=== PATIENT | female | born 1950 | race Caucasian/White ===

== ENCOUNTER 2017-08-12 20:52 | Emergency (ER) | payer MEDICARE ==
[~2017-08-12 20:52] MED LIST: Gadobenate Dimeglumine 529 MG/1 ML (20ML VIAL) ONE
[2017-08-12] MEDS ORDERED: Metoclopramide HCl 10 MG/2 ML VIAL ONE (21:21)
[2017-08-12 21:25] LABS: #Basophils 0.1 thou/uL (0.0-0.2); #Eosinphils 0.2 thou/uL (0.0-0.7); #Lymphocytes 2.9 thou/uL (1.20-3.40); #Monocytes 0.5 thou/uL (0.11-0.59); #Neutrophils 3.2 thou/uL (1.40-6.50); %Basophils 1.3 % (0.0-1.0); %Eosinophils 2.5 % (0.0-10.0); %Lymphocytes 42.8 % (21.0-51.0); %Monocytes 6.7 % (0.0-10.0); %Neutrophils 46.6 % (42.0-75.0); Mean Corpuscular HGB CONC 34.9 g/dL (32.0-36.0); Mean Corpuscular Hemoglobin 28.7 pg (27.0-31.0); Mean Corpuscular Volume 82.4 fl (81.0-99.0); Mean Platelet Volume 6.2 fL (7.4-10.4); Platelet Count 255 thou/uL (130-400); RBC Distribution Width 11.2 % (11.5-14.5); Red Blood Cell (RBC) Count 4.89 mill/uL (4.20-5.40); White Blood Cell (WBC) Count 6.8 thou/uL (4.8-10.8)
[2017-08-12] MEDS ORDERED: diphenhydrAMINE 50 MG/ML VIAL ONE (21:32)
[2017-08-12] MEDS ORDERED: Lorazepam 2 MG/ML VIAL ONE (21:35)
[2017-08-12 21:36] LABS: ALT (SGPT) 62 U/L (8-55); AST (SGOT) 52 U/L (5-34); Albumin 4.1 g/dL (3.4-4.8); Alkaline Phosphatase 116 U/L (40-150); Anion Gap 16 mmol/L (10-20); BUN (Urea Nitrogen) 19 mg/dL (9.8-20.1); Bilirubin, Total 0.4 mg/dL (0.2-1.2); Calc. Creatinine Clearance 0 mL/min (70-130); Calcium 9.6 mg/dL (7.8-10.44); Carbon Dioxide 23 mmol/L (23-31); Chloride 104 mmol/L (98-107); Estimated GFR-MDRD 58; Globulin 3.8 g/dL (2.4-3.5); Glucose 229 mg/dL (80-115); Lipase 50 U/L (8-78); Potassium 3.6 mmol/L (3.5-5.1); Protein, Total 7.9 g/dL (6.0-8.3); Sodium 139 mmol/L (136-145)
[2017-08-12 22:23] LABS: Bilirubin Negative (Negative); Blood, Urine Negative (Negative); Clarity Clear (Clear); Glucose, Urine (Dipstick) 500 mg/dL (Negative); Leukocyte Trace (Negative); Nitrite Negative (Negative); Protein, Urine (Dipstick) Negative (Neg-Trace); pH, Urine 5.5 (5.0-9.0)
[2017-08-12 22:29] LABS: Bacteria/HPF None Seen HPF (None Seen); RBC/HPF 0-3 HPF (0-3); Squamous Epithelial 0-3 HPF (0-3); WBC/HPF 0-3 HPF (0-3)
[2017-08-12 22:30] LABS: Hyaline Casts/LPF 0-3 HYALINE CAST LPF (0-3 Hyaline)
--- NOTE | 2017-08-12 23:52 | CT ---
CT ABDOMEN AND PELVIS WITH CONTRAST: Comparison: None. History: Left upper quadrant abdominal pain and left flank pain for three days. Partial hysterectomy and appendectomy in 1978. Technique: Multiple contiguous axial images were obtained in a CT of the abdomen and pelvis with cont rast. PO contrast was administered. Coronal reformats were performed. FINDINGS: There is a large 8.8 cm cystic structure in the lower posterior pelvis. This appears to abut both ova alena which are along the pelvis side song and this may represent an ovarian cyst/follicle. The uteru s is not seen and has been removed. The liver, gallbladder, kidneys, adrenal glands, spleen, and pancreas are unremarkable. No free air, free fluid, or stranding changes are seen in the abdomen or pelvis. There are a few scattered diverticula in the colon. The small bowel is unremarkable. No abdominal or pelvic lymphadenopathy are seen. There is a moderate hiatal hernia. The abdominal wall soft tissues and visualized inferior thorax are unremarkable. There are two sclerotic lesions in the left pelvic bones. The largest is seen adjacent to the left acetabulum measuring 2.6 cm in greatest dimension. These are well circumscribed but nons pecific. IMPRESSION: 1. Large cystic structure in the pelvis likely represents an ovarian cyst/follicle. 2. Diverticulosis. 3. Hiatal hernia. 4. Nonspecific sclerotic foci in the left pelvic bones are likely benign as they are well circumscrib ed. POS: [facility]
[2017-08-13 00:47] LABS: Lactic Acid 1.4 mmol/L (0.5-2.2)
[2017-08-16 09:54] LABS: Base Excess-Venous -3.6 mmol/L (0 (+/- 2.5)); Bicarbonate (HCO3v) 25.8 mmol/L (1.0-85.0); CO2 Tension (PvCO2) 64.2 mmHg (41.0-51.0); Calcium, Ionized 1.17 mmol/L (1.12-1.32); Hemoglobin - Calc 15.2 g/dL (12.0-18.0); Potassium 10.6 mmol/L (3.4-4.7); T. Carbon Dioxide 27.8 mmol/L (1.0-85.0); pH (Venous) 7.212 (7.35-7.45); vO2 Saturation-calc 88.7 % (94-98)
--- NOTE | 2017-08-20 15:55 | EKG ---
Test Reason : Blood Pressure : / mmHG Vent. Rate : 100 BPM Atrial Rate : 100 BPM P-R Int : 148 ms QRS Dur : 084 ms QT Int : 348 ms P-R-T Axes : 051 065 057 degrees QTc Int : 448 ms Normal sinus rhythm Normal ECG Confirmed by HAY IRVIN, BAUTISTA ([id number]), art editor VERN EARLY ([id number]) on 08/20/2017 3:55:01 PM Referred By: Confirmed By:BAUTISTA GUIDO MD
== END 2017-08-13 01:06 | disposition home or self-care (01) ==
LOC: SCSER 20:52
DX: N94.89 Other specified conditions associated with female genital organs and menstrual cycle (principal); I10 Essential (primary) hypertension; Z79.899 Other long term (current) drug therapy
CPT/HCPCS: 74177; 80053; 81003; 81015; 82330; 82435; 82803; 83605; 83690; 84132; 84295; 85014; 85025; 93005; 96361; 96374; 96375; A9579; J1200; J2060; J2765

== ENCOUNTER 2018-03-28 09:41 | Outpatient (CLI) | payer MEDICARE ==
--- NOTE | 2018-03-28 11:52 | ULT ---
BILATERAL RENAL ULTRASOUND: Date: 03/28/18 HISTORY: Angiomyolipoma of right kidney. FINDINGS: Comparison made with ultrasound of 03/01/[address] abdomen/pelvis of 08/12/17. The right kidney measures 11.1 cm in length and the left kidney measures 10.5 cm in length. No focal mass or hydronephrosis seen on either side. Cortical echogenicity and thickness is normal. There is a 3.0 x 5.0 mm echogenic focus without shadowing. The urinary bladder is unremarkable. IMPRESSION: Questionable nonobstructing left renal calculus. No evidence of mass in either kidney. POS: [facility]
== END 2018-03-28 09:42 | disposition home or self-care (01) ==
LOC: BICULT 09:41
PROVIDERS: ATTEND Internal Medicine
DX: D30.01 Benign neoplasm of right kidney (principal)
CPT/HCPCS: 76770

== ENCOUNTER 2018-04-29 14:22 | Emergency (ER) | payer MEDICARE ==
[2018-04-29 14:51] LABS: #Basophils 0.1 thou/uL (0.0-0.2); #Eosinphils 0.2 thou/uL (0.0-0.7); #Lymphocytes 3.1 thou/uL (1.20-3.40); #Monocytes 0.5 thou/uL (0.11-0.59); %Basophils 0.8 % (0.0-1.0); %Eosinophils 2.4 % (0.0-10.0); %Lymphocytes 39.6 % (21.0-51.0); %Monocytes 6.5 % (0.0-10.0); %Neutrophils 50.8 % (42.0-75.0); Hemoglobin 14.7 g/dL (12.0-16.0); Mean Corpuscular HGB CONC 34.9 g/dL (32.0-36.0); Mean Corpuscular Hemoglobin 29.9 pg (27.0-31.0); Mean Corpuscular Volume 85.7 fL (78.0-98.0); Mean Platelet Volume 6.1 fL (7.4-10.4); Platelet Count 344 thou/uL (130-400); RBC Distribution Width 11.4 % (11.5-14.5); Red Blood Cell (RBC) Count 4.92 mill/uL (4.20-5.40); White Blood Cell (WBC) Count 7.8 thou/uL (4.8-10.8)
[2018-04-29 15:11] LABS: Bilirubin Negative (Negative); Blood, Urine Negative (Negative); Clarity CLOUDY (Clear); Glucose, Urine (Dipstick) Negative (Negative); Leukocyte Small (Negative); Nitrite Negative (Negative); Protein, Urine (Dipstick) Negative (Neg-Trace)
[2018-04-29 15:16] LABS: Bacteria/HPF 1+ HPF (None Seen); Hyaline Casts/LPF 7-10 HYALINE CAST LPF (0-3 Hyaline); Pathc Cast-AUWi Flag 1.88 (0-2.49); RBC/HPF 0-3 HPF (0-3)
[2018-04-29 15:17] LABS: ALT (SGPT) 53 U/L (8-55); AST (SGOT) 50 U/L (5-34); Albumin 4.2 g/dL (3.4-4.8); Alkaline Phosphatase 111 U/L (40-150); Anion Gap 13 mmol/L (10-20); BUN (Urea Nitrogen) 12 mg/dL (9.8-20.1); Bilirubin, Total 0.6 mg/dL (0.2-1.2); Calc. Creatinine Clearance 0 mL/min (70-130); Carbon Dioxide 25 mmol/L (23-31); Chloride 101 mmol/L (98-107); Estimated GFR-MDRD 67; Globulin 3.8 g/dL (2.4-3.5); Glucose 145 mg/dL (80-115); Sodium 135 mmol/L (136-145)
--- NOTE | 2018-04-29 15:54 | RAD ---
SINGLE VIEW CHEST: Date: 04/29/18 COMPARISON: None. HISTORY: Left lower quadrant abdominal pain and chest pain. FINDINGS: Single view of the chest shows a normal sized cardiomediastinal silhouette. There is no evidence of c onsolidation, mass, or pleural effusion. The bones are unremarkable. IMPRESSION: No evidence of acute cardiopulmonary disease. POS: [facility]
--- NOTE | 2018-04-30 15:39 | EKG ---
Test Reason : Blood Pressure : / mmHG Vent. Rate : 110 BPM Atrial Rate : 110 BPM P-R Int : 142 ms QRS Dur : 074 ms QT Int : 318 ms P-R-T Axes : 047 055 037 degrees QTc Int : 430 ms Sinus tachycardia Nonspecific ST abnormality Abnormal ECG Confirmed by CHANDRIKA LITTLE ([id number]), acquisitions editor VERN EARLY ([id number]) on 04/30/2018 3:38:57 PM Referred By: Confirmed By:CHANDRIKA LITTLE
== END 2018-04-29 16:46 | disposition home or self-care (01) ==
LOC: ERS 14:22
DX: R10.13 Epigastric pain (principal); E11.9 Type 2 diabetes mellitus without complications; I10 Essential (primary) hypertension; Z79.84 Long term (current) use of oral hypoglycemic drugs; Z79.899 Other long term (current) drug therapy
CPT/HCPCS: 36415; 71045; 80053; 81003; 81015; 82550; 84484; 85025; 93005

== ENCOUNTER 2018-04-30 09:20 | Outpatient (CLI) | payer MEDICARE ==
--- NOTE | 2018-04-30 12:13 | CT ---
CT ABDOMEN AND PELVIS WITH CONTRAST: HISTORY: Abdominal pain, R10,9. COMPARISON: CT from 08/12/2017. FINDINGS: The lung bases are clear. No pericardial effusion. Large sliding hiatal hernia, containing approxim ately 20% of the gastric volume. This is similar to the comparison examination, with some mildly pro minent right gastric lymph nodes. Normal proximal small bowel rotation. No acute osseous abnormality. Mild facet arthrosis of the lower lumbar spine. No hydronephrosis. No retroperitoneal adenopathy. No dilated loops of large or small bowel. The enhancing mass in hepatic segment 7 is unchanged from the 08/12/2017 examination and is likely a hemangioma or vascular shunt. IMPRESSION: 1. Moderate to large sliding hiatal hernia, containing 20% to 30% of the gastric volume within the t horax. No acute intraabdominal abnormality. 2. The previously described adnexal hypodensity no longer persists. POS: [facility]
== END 2018-04-30 09:21 | disposition home or self-care (01) ==
LOC: CT 09:20
PROVIDERS: ATTEND Internal Medicine
DX: R10.9 Unspecified abdominal pain (principal); K44.9 Diaphragmatic hernia without obstruction or gangrene
CPT/HCPCS: 74177

== ENCOUNTER 2018-06-06 06:09 | Outpatient (CLI) | payer MEDICARE ==
[2018-06-06 12:15] LABS: #Eosinphils 0.3 thou/uL (0.0-0.7); #Lymphocytes 2.4 thou/uL (1.20-3.40); #Monocytes 0.5 thou/uL (0.11-0.59); #Neutrophils 2.6 thou/uL (1.40-6.50); %Basophils 0.6 % (0.0-1.0); %Eosinophils 5.9 % (0.0-10.0); %Lymphocytes 40.6 % (21.0-51.0); %Monocytes 8.6 % (0.0-10.0); %Neutrophils 44.3 % (42.0-75.0); Hemoglobin 13.8 g/dL (12.0-16.0); Mean Corpuscular HGB CONC 33.5 g/dL (32.0-36.0); Mean Corpuscular Hemoglobin 28.4 pg (27.0-31.0); Mean Corpuscular Volume 84.8 fL (78.0-98.0); Mean Platelet Volume 6.4 fL (7.4-10.4); Platelet Count 206 thou/uL (130-400); RBC Distribution Width 11.5 % (11.5-14.5); Red Blood Cell (RBC) Count 4.84 mill/uL (4.20-5.40); White Blood Cell (WBC) Count 5.9 thou/uL (4.8-10.8)
[2018-06-06 12:37] LABS: Anion Gap 13 mmol/L (10-20); BUN (Urea Nitrogen) 10 mg/dL (9.8-20.1); Calc. Creatinine Clearance 0 mL/min (70-130); Calcium 9.6 mg/dL (7.8-10.44); Carbon Dioxide 26 mmol/L (23-31); Chloride 104 mmol/L (98-107); Estimated GFR-MDRD 67; Glucose 111 mg/dL (80-115); Potassium 3.7 mmol/L (3.5-5.1); Sodium 139 mmol/L (136-145)
== END 2018-06-06 06:10 | disposition home or self-care (01) ==
LOC: LABBT 06:09
PROVIDERS: ATTEND Specialist
DX: Z01.818 Encounter for other preprocedural examination (principal); K44.9 Diaphragmatic hernia without obstruction or gangrene; K21.9 Gastro-esophageal reflux disease without esophagitis
CPT/HCPCS: 80048; 85025; 93005; 93010

== ENCOUNTER 2018-06-11 05:39 | Inpatient (IN) | payer MEDICARE ==
--- NOTE | 2018-06-06 10:11 | HP ---
HISTORY OF PRESENT ILLNESS: Cristina Schreiber is a 67-year-old female, who has had 3 to 4 weeks of upper abdominal pain and scapular radiation postprandial. She is seen by Dr. Lombardi and sent to the emergency room. Instructions to have a CAT scan, which she did not have. She returned to the hospital to have an urgent CAT scan revealing a large hiatal hernia, 20% to 30% of her gastric volume and in the mediastinum. She had laboratories on 04/29/2018, CBC and comprehension metabolic profile, that are normal. Troponins that were negative. The patient has never seen a natural gas engineer, has never had screening colonoscopy. We have scheduled her for Gastroenterology consultation. She wants to put off any surgeries until the first year. Although she is having some discomfort, she is able to tolerate them at this time. Plan is to see Dr. Flores for an upper endoscopy, possible colonoscopy, and then follow up with me after that to schedule laparoscopic hiatal hernia repair, Cate fundoplication, and gastropexy with a PEG tube. She understands the risks and benefits of the procedures. Questions answered. ALLERGIES: REGLAN AND STATIN. PAST SURGICAL HISTORY: Total abdominal hysterectomy, bilateral salpingo-oophorectomy, carpal tunnel surgery, and ovarian cyst removed prior to hysterectomy. SOCIAL HISTORY: Tobacco, none. Alcohol, none. PAST MEDICAL HISTORY: Diabetes mellitus, hypertension, GERD, elevated triglycerides and cholesterol. MEDICATIONS: 1. Metformin 500 mg a day. 2. Lisinopril 20/25 mg a day. 3. Ezetimibe 10 mg daily. 4. Amlodipine 5 mg a day. 5. Baby aspirin 81 mg a day. 6. Fish oil daily. 7. Nexium 40 mg a day. 8. Sucralfate 1 g t.i.d. REVIEW OF SYSTEMS: Ten-point noncontributory. PHYSICAL EXAMINATION: VITAL SIGNS: Weight 163 pounds, blood pressure 136/83, pulse 84, and heart rate 99.3 degrees. HEAD, EARS, EYES, NOSE, AND THROAT: Unremarkable. LUNGS: Clear to auscultation. CARDIAC: Regular rate and rhythm without murmur or gallop. ABDOMEN: Soft, nontender, and obese. EXTREMITIES: Unremarkable. Job ID: [id number]
[2018-06-06 10:41] VITALS: BMI 26.5
[2018-06-11] MEDS ORDERED: Bupivacaine HCl 0.25%/Epi 0.0005/PF 10 ML VIAL FS ONE (06:48)
[2018-06-11] MEDS ORDERED: CEFAZOLIN 2 GM/50 ML BAG ONE (07:08)
[2018-06-11] MEDS ORDERED: Ketorolac Tromethamine 30 MG/ML VIAL ONE ×2 (07:09→12:44)
[2018-06-11] MEDS ORDERED: Fentanyl 100 MCG/2 ML VIAL ONE ×5 (07:24→11:36)
[2018-06-11] MEDS ORDERED: Dextrose 50% Abboject 50 ML SYRINGE SLOW IVP PRN (10:16)
[2018-06-11] MEDS ORDERED: hydrALAZINE 20 MG/ML VIAL SLOW IVP PRN (10:16)
[2018-06-11] MEDS ORDERED: HumaLOG 300 UNITS/3 ML VIAL SC PRN (10:16)
[2018-06-11] MEDS ORDERED: Ondansetron PF 4 MG/2 ML Vial IVP PRN (10:16)
[2018-06-11] MEDS ORDERED: Ondansetron ODT 4 MG TAB PO PRN (10:16)
[2018-06-11] MEDS ORDERED: Dextrose 5% in Water 1,000 ML IV PRN (10:16)
[2018-06-11] MEDS ORDERED: HYDROmorphone 2 MG/ML VIAL SLOW IVP PRN (10:22)
[2018-06-11] MEDS ORDERED: Promethazine HCl 25 MG/ML VIAL SLOW IVP PRN (10:22)
[2018-06-11] MEDS ORDERED: Promethazine HCl 25 MG/ML VIAL IM PRN (10:22)
[2018-06-11] MEDS ORDERED: Ondansetron HCl/PF 4 MG/2 ML Vial IVP PRN (10:22)
[2018-06-11] MEDS ORDERED: Morphine 4 MG/ML VIAL SLOW IVP PRN (10:24)
[2018-06-11] MEDS: Ketorolac Tromethamine 30 MG/ML VIAL IVP SCH ×2 (12:44→18:29)
[2018-06-11] MEDS: Lactated Ringer's 1,000 ML IV SCH ×2 (12:44→21:44)
[2018-06-11] MEDS ORDERED: Glycopyrrolate 0.2 MG/ML 5 ML SYRINGE ONE (13:01)
[2018-06-11] MEDS ORDERED: PROPOFOL 200 MG/20 ML VIAL ONE (13:01)
[2018-06-11] MEDS ORDERED: PHENYLEPHRINE-NS 100 MCG/ML 10 ML SYRINGE ONE (13:01)
[2018-06-11] MEDS ORDERED: Ondansetron PF 4 MG/2 ML Vial ONE (13:01)
[2018-06-11] MEDS ORDERED: Rocuronium Bromide 10 MG/ML (10ML VIAL) ONE (13:01)
[2018-06-11] MEDS ORDERED: Lidocaine 1% PF 5 ML VIAL ONE (13:01)
[2018-06-11] MEDS ORDERED: Promethazine HCl 25 MG/ML VIAL ONE (13:41)
--- NOTE | 2018-06-11 14:21 | OP ---
DATE OF PROCEDURE: 06/11/2018 PREOPERATIVE DIAGNOSES: Large hiatal hernia, gastroesophageal reflux disease, status post esophagogastroduodenoscopy and colonoscopy recently. ANESTHESIA: General, local 0.25% Marcaine with epinephrine 60 mL. PROCEDURES PERFORMED: Laparoscopic Cate fundoplication over 50-American bougie, hiatal hernia repair, and gastropexy. FINDINGS: Hiatal hernia with 1/3 gastric contents in the mediastinum, and hiatal hernia defect. DESCRIPTION OF PROCEDURE: The patient was taken to the operating room, where in the supine position, abdomen was prepared with ChloraPrep and draped in routine fashion under general anesthesia. A supraumbilical incision was made. Pneumoperitoneum to 15 mmHg obtained with a Veress needle, replaced with a 5 port, and laparoscope inserted. Right subxiphoid and left subxiphoid incision were made and a 5 mm port and 11 mm port placed respectively. Left lateral subcostal incision was made and a 5 mm port placed. Right subcostal incision was made and a 5-mm port placed. Under laparoscopic visualization, liver appeared to be normal. Gallbladder appeared to be normal. Liver retractor was placed to the right lateral subcostal incision and the left lobe of the liver retracted anterior and cephalad, held in place with Tariq's arm. Hiatal hernia dissected free. Gastrohepatic ligament was taken down in avascular plane with a LigaSure to the right crura. Gastrosplenic ligament taken down from the upper third of the fundus of the stomach using the LigaSure, dissected up to the left crura. Hiatal hernia dissected free, taken down, identifying the left and right crura, and dissected free circumferentially, peritoneal attachments and hiatal hernia site. Dissection was carried up into the mediastinum reducing the stomach into the abdominal cavity and the posterior window cleared with the LigaSure and blunt dissection, identifying the left and right crura posteriorly and placing a [place] quarter-inch drain around the lower esophagus and securing it through another port site in the left lower quadrant, through a 5 mm port. This was held in place. At this point, the hiatal hernia was repaired posteriorly with interrupted sutures of 0 Ethibond using the Endo Knot Pusher. Once this was closed over with the 50-American bougie in the esophagus, which had been placed initially by placing bougie over 40-American caliber and progressing up to a 50-American bougie and after the posterior hiatus had been closed, the Cate fundoplication completed bypassing the posterior wall of the stomach near the apex of the fundus posteriorly grasping it, holding it in place in the upper fundus anterior to the gastrosplenic ligament takedown, passed, and this held in place with 0 Ethibond suture passed, securing the fundic wrap, apex, and incorporating the bite of the lower esophagus in this approximation. About 2 cm caudally from this, the fundus was approximated with Ethibond suture knot pusher and about 2 cm caudal to this, a third knot was placed securing the fundic wrap to the upper stomach. Once this was completed, the fundus was secured on the left to the left anterior crura and on the right to the right anterior crura with Ethibond sutures using the knot pusher. The bougie was then removed and the hiatal hernia repair was adequately tight to allow passage of an examining instrument. Gastropexy was undertaken with two stitches of Ethibond suture, pexing the fundus of the stomach just anterior to the gastrosplenic ligament taken down to an area of the anterior abdominal wall, left upper quadrant, secured it and pexied. Once this was secured, endoscopy was performed, passing the scope easily through the esophagus through the fundic wrap into the stomach. Retroflexion of scope revealed a good Cate fundoplication appearance and scope passed easily. Torsion of the stomach was not present. Stomach was deflated. Esophagus noted to be normal. I then returned to the abdominal cavity, where the liver retractors removed and the liver was of good health without any fracture or tear. Stomach was inspected, noted to be properly oriented. The fundic wrap was intact. Pneumoperitoneum reduced. All instruments were removed and all skin incisions were approximated with interrupted subdermal 4-0 Monocryl and [place] glue applied. The patient tolerated the procedure well. Job ID: [id number]
[2018-06-11] MEDS ORDERED: Enoxaparin Sodium 40 MG/0.4 ML SYRINGE SC SCH (21:00)
[2018-06-12] MEDS: Ketorolac Tromethamine 30 MG/ML VIAL IVP SCH ×3 (00:19→11:26)
[2018-06-12 06:21] LABS: #Basophils 0.1 thou/uL (0.0-0.2); #Eosinphils 0.1 thou/uL (0.0-0.7); #Lymphocytes 2.2 thou/uL (1.20-3.40); #Monocytes 0.5 thou/uL (0.11-0.59); #Neutrophils 4.1 thou/uL (1.40-6.50); %Basophils 0.9 % (0.0-1.0); %Eosinophils 1.5 % (0.0-10.0); %Lymphocytes 31.4 % (21.0-51.0); %Monocytes 7.6 % (0.0-10.0); %Neutrophils 58.7 % (42.0-75.0); Hemoglobin 11.8 g/dL (12.0-16.0); Mean Corpuscular HGB CONC 34.3 g/dL (32.0-36.0); Mean Corpuscular Volume 87.4 fL (78.0-98.0); Mean Platelet Volume 6.7 fL (7.4-10.4); Platelet Count 178 thou/uL (130-400); RBC Distribution Width 11.6 % (11.5-14.5); Red Blood Cell (RBC) Count 3.92 mill/uL (4.20-5.40); White Blood Cell (WBC) Count 6.9 thou/uL (4.8-10.8)
[2018-06-12] MEDS: Lactated Ringer's 1,000 ML IV SCH (06:44)
[2018-06-12 07:06] LABS: Anion Gap 11 mmol/L (10-20); BUN (Urea Nitrogen) 11 mg/dL (9.8-20.1); Calc. Creatinine Clearance 77 mL/min (70-130); Calcium 8.4 mg/dL (7.8-10.44); Carbon Dioxide 23 mmol/L (23-31); Chloride 104 mmol/L (98-107); Estimated GFR-MDRD 76; Glucose 146 mg/dL (80-115); Potassium 3.4 mmol/L (3.5-5.1); Sodium 135 mmol/L (136-145)
[2018-06-12] MEDS ORDERED: metFORMIN 500 MG TAB PO SCH (08:00)
[2018-06-12] MEDS ORDERED: traMADol HCl 50 MG TAB PO PRN ×2 (08:00)
[2018-06-12 08:25] VITALS: TEMP 98.5
[2018-06-12] MEDS ORDERED: Pantoprazole 40 MG VIAL IVP SCH (09:00)
[2018-06-12] MEDS ORDERED: Ezetimibe 10 MG TAB PO SCH (09:00)
[2018-06-12] MEDS ORDERED: Lisinopril/Hydrochlorothiazide 20/25 mg Tablet PO SCH (09:00)
[2018-06-12] MEDS ORDERED: Amlodipine 5 MG TAB PO SCH (09:00)
[2018-06-12] MEDS ORDERED: Aspirin 81 mg Enteric Coated Tablet PO SCH (09:00)
[2018-06-12] MEDS ORDERED: Fish Oil 1,000 MG CAP PO SCH (09:00)
[2018-06-12 11:24] VITALS: BP 131/83
[2018-06-12] MEDS ORDERED: Acetaminophen 500 MG TAB PO PRN (14:15)
--- NOTE | 2018-06-12 14:34 | PRG ---
DATE OF SERVICE: 06/12/2018 SUBJECTIVE: Ms. Schreiber is doing well after laparoscopic Cate fundoplication and gastropexy. She is tolerating her liquids. OBJECTIVE: VITAL SIGNS: Temperature 98.5 degrees, pulse 96, and blood pressure 131/83. LUNGS: Clear to auscultation. Cardiac: Regular rate and rhythm without murmur or gallop. ABDOMEN: Soft, nontender. Surgical wounds look good. LABORATORY DATA: This morning, white count 6, hemoglobin 11.8. Basic metabolic profile normal. ASSESSMENT: Status post Cate fundoplication, hiatal hernia repair, and gastropexy. Continue full liquids. Avoid red meat salads and breads for 1 to 2 weeks. Advance diet slowly to a soft diet. Avoid emesis. PLAN: Discharge home with Ultram, Advil, and Tylenol p.r.n. pain. Diet and activity as tolerated. Follow up with me in the office in 2 to 3 weeks. Job ID: [id number]
--- NOTE | 2018-06-12 16:34 | DIS ---
DATE OF ADMISSION: 06/11/2018 DATE OF DISCHARGE: 06/12/2018 DISCHARGE DIAGNOSES: Hiatal hernia; gastroesophageal reflux disease; hypertension; diabetes, noninsulin dependent. HOME MEDICATIONS AT DISCHARGE: 1. Tylenol. 2. Advil [id number] p.r.n. pain. 3. Ultram p.r.n. pain, refractory to above. 4. Zofran as needed, #10 one refill. Follow up in my office in 2 to 3 weeks. Diet advancement, full liquids to pureed, soft diet. Avoid red meat, salads, and breads for about 2 weeks. Introduce these slowly in small volumes and chew it well. Resume home medications; aspirin, amlodipine, metformin, Zetia, and Zofran. HISTORY: A 67-year-old female presenting with large hiatal hernia, evaluated preoperatively by Gastroenterology with an EGD, colonoscopy. EGD revealing hiatal hernia, 20% to 30% of her gastric volume in mediastinum. No ulcerations. No Ribeiro's. The patient had 4 weeks of upper abdominal pain prior, saw Dr. Lombardi, sent to the emergency room. CAT scan revealed a hiatal hernia. The patient underwent the laparoscopic Cate fundoplication, hiatal hernia repair, over 50-Beninese Bougie, and gastropexy. She did well postoperatively. She was instructed to advance her diet slowly, full liquids on discharge, pureed/soft foods initially. Avoid red meat, salads, and bread for about 2 weeks, introduce these slowly in small volumes and chew it well. Diet and activity as tolerated. Resume diabetic diet. Resume home medications. Job ID: [id number]
== END 2018-06-12 15:05 | disposition home or self-care (01) | DRG 328 ==
LOC: SDC 05:39 → SURG A 10:16
PROVIDERS: ADMIT Specialist; ATTEND Specialist
PROC: 0BQT4ZZ Repair Diaphragm, Percutaneous Endoscopic Approach (ICD-10-PCS; principal; 2018-06-11)
PROC: 0DV44ZZ Restriction of Esophagogastric Junction, Percutaneous Endoscopic Approach (ICD-10-PCS; 2018-06-11)
DX: K44.9 Diaphragmatic hernia without obstruction or gangrene (principal); E11.9 Type 2 diabetes mellitus without complications; I10 Essential (primary) hypertension; K21.9 Gastro-esophageal reflux disease without esophagitis; Z88.8 Allergy status to other drugs, medicaments and biological substances; Z90.710 Acquired absence of both cervix and uterus; Z90.722 Acquired absence of ovaries, bilateral; Z98.890 Other specified postprocedural states; Z79.84 Long term (current) use of oral hypoglycemic drugs; Z79.899 Other long term (current) drug therapy; Z79.82 Long term (current) use of aspirin
CPT/HCPCS: 36415; 36416; 80048; 85025; J0131; J1650; J1885; J2001; J2270; J2405; J2550; J2704; J3010; Q0162

== ENCOUNTER 2018-07-25 09:45 | Outpatient (CLI) | payer MEDICARE ==
[2018-07-25 10:40] LABS: #Basophils 0.1 thou/uL (0.0-0.2); #Eosinphils 0.1 thou/uL (0.0-0.7); #Lymphocytes 2.9 thou/uL (1.20-3.40); #Monocytes 0.5 thou/uL (0.11-0.59); #Neutrophils 4.9 thou/uL (1.40-6.50); %Basophils 0.8 % (0.0-1.0); %Eosinophils 1.4 % (0.0-10.0); %Lymphocytes 34.4 % (21.0-51.0); %Monocytes 5.7 % (0.0-10.0); %Neutrophils 57.7 % (42.0-75.0); Hemoglobin 15.3 g/dL (12.0-16.0); Mean Corpuscular Hemoglobin 28.3 pg (27.0-31.0); Mean Corpuscular Volume 85.8 fL (78.0-98.0); Platelet Count 265 thou/uL (130-400); RBC Distribution Width 11.6 % (11.5-14.5); Red Blood Cell (RBC) Count 5.41 mill/uL (4.20-5.40); White Blood Cell (WBC) Count 8.5 thou/uL (4.8-10.8)
[2018-07-25 10:51] LABS: ALT (SGPT) 56 U/L (8-55); AST (SGOT) 64 U/L (5-34); Albumin 4.6 g/dL (3.4-4.8); Alkaline Phosphatase 106 U/L (40-150); Anion Gap 16 mmol/L (10-20); BUN (Urea Nitrogen) 14 mg/dL (9.8-20.1); Bilirubin, Total 0.9 mg/dL (0.2-1.2); Calc. Creatinine Clearance 0 mL/min (70-130); Calcium 10.6 mg/dL (7.8-10.44); Carbon Dioxide 28 mmol/L (23-31); Chloride 99 mmol/L (98-107); Estimated GFR-MDRD 72; Glucose 130 mg/dL (80-115); Lipase 37 U/L (8-78); Potassium 3.2 mmol/L (3.5-5.1); Protein, Total 8.6 g/dL (6.0-8.3); Sodium 140 mmol/L (136-145)
--- NOTE | 2018-07-25 13:25 | CT ---
ABDOMEN AND PELVIC CT SCAN WITH IV COTNRAST: HISTORY: R10.9, abdominal pain, epigastric pain, and diarrhea. COMPARISON: 04/30/2018. FINDINGS: The lung bases appear clear. There has been interval surgical repair of the previously noted hiatal hernia with some stomach wrapped around the distal esophagus. The visualized gallbladder, liver, adr enal glands, and spleen appear stable. There is a small stable enhancing focus in the right lobe of the liver. Borderline stable evens hepatis lymph nodes. No renal calculus or acute obstruction. No evidence for large or small bowel obstruction. No abscess or abnormal fluid collection. IMPRESSION: Status post hiatal hernia repair. A small stable enhancing focus in the right lobe of the liver. No acute process or significant change. POS: [facility]
[2018-07-25 14:26] LABS: Gamma GT (GGT) 97 U/L (9-36)
== END 2018-07-25 09:46 | disposition home or self-care (01) ==
LOC: SCSCT 09:45
PROVIDERS: ATTEND Internal Medicine
DX: R10.9 Unspecified abdominal pain (principal); K21.9 Gastro-esophageal reflux disease without esophagitis; E78.2 Mixed hyperlipidemia; Z98.890 Other specified postprocedural states
CPT/HCPCS: 36415; 74177; 80053; 82977; 83690; 85025

== ENCOUNTER 2019-11-09 11:12 | Outpatient (CLI) | payer MEDICARE ==
[2019-11-09] MEDS ORDERED: Iopamidol 370 76% 100 ML VIAL ONE (13:51)
--- NOTE | 2019-11-09 15:45 | CT ---
CT ABDOMEN AND PELVIS WITH IV CONTRAST: DATE: 11/09/2019. PROVIDED CLINICAL HISTORY: Abdominal pain. FINDINGS: Comparison 07/25/2018. The visualized lung bases are free of significant opacity. Postoperative changes of Matthew fundoplication are noted. The gastric wrap and portions of the proxi mal gastric body protrude through the diaphragmatic hiatus. The liver, spleen, pancreas, kidneys, and adrenal glands demonstrate an unremarkable CT appearance. There is no bowel dilatation, inflammatory fat stranding, free fluid, or lymph node enlargement appar ent. Occasional vascular calcifications are seen. The regional major vascular structures appear oth erwise unremarkable. The osseous structures demonstrate no concerning lytic or blastic lesions. IMPRESSION: Postoperative changes of Matthew fundoplication, with the wrap and proximal gastric body protruding th rough the diaphragmatic hiatus. POS: [facility]
== END 2019-11-09 11:13 | disposition home or self-care (01) ==
LOC: BICCT 11:12
PROVIDERS: ATTEND Internal Medicine
DX: R10.9 Unspecified abdominal pain (principal); Z98.890 Other specified postprocedural states
CPT/HCPCS: 74177; Q9967

== ENCOUNTER 2019-12-03 08:40 | Outpatient (CLI) | payer MEDICARE ==
--- NOTE | 2019-12-03 09:25 | ULT ---
RIGHT UPPER QUADRANT ULTRASOUND: DATE: 12/03/2019. PROVIDED CLINICAL HISTORY: Epigastric pain. FINDINGS: The visualized IVC and pancreas appear normal. The liver demonstrates a coarsened and echogenic appe arance compatible with fatty infiltration. There is no evidence for mass or intrahepatic biliary nimisha mary beth dilatation. The common duct is not dilated. Gallbladder demonstrates no stones, wall thickening , or pericholecystic fluid. The right kidney demonstrates no hydronephrosis, or mass. IMPRESSION: Fatty infiltration of the liver. No evidence for an acute process. POS: [facility]
== END 2019-12-03 08:41 | disposition home or self-care (01) ==
LOC: SCSULT 08:40
PROVIDERS: ATTEND Specialist
DX: R10.13 Epigastric pain (principal); K76.0 Fatty (change of) liver, not elsewhere classified
CPT/HCPCS: 76705

== ENCOUNTER → 2019-12-24 | Outpatient (CLI) | payer MEDICARE, OTHER ==
[2019-12-24 18:20] LABS: SARS-CoV-2 MS2 Positive; SARS-CoV-2 N Gene Negative; SARS-CoV-2 S Gene Negative; SARS-CoV-2 by NAA Not Detected (NotDetected); SARS-CoV-2 orf1ab Negative
== END ==
LOC: LABBT 08:00
PROVIDERS: ATTEND Specialist
DX: Z20.828 Contact with and (suspected) exposure to other viral communicable diseases (principal)
CPT/HCPCS: 87635; U0003

== ENCOUNTER 2021-10-29 14:53 | Emergency (ER) | payer MEDICARE ==
[2021-10-29] MEDS ORDERED: Lidocaine 1% (PF) 30 ML VIAL ONE (15:33)
== END 2021-10-29 16:11 | disposition home or self-care (01) ==
LOC: ERS 14:53
DX: S61.411A Laceration without foreign body of right hand, initial encounter (principal); I10 Essential (primary) hypertension; R73.03 Prediabetes; Z79.899 Other long term (current) drug therapy; Z79.84 Long term (current) use of oral hypoglycemic drugs; W25.XXXA Contact with sharp glass, initial encounter; Y92.009 Unspecified place in unspecified non-institutional (private) residence as the place of occurrence of the external cause
CPT/HCPCS: 12001; J2001

== ENCOUNTER 2021-11-08 08:05 | Emergency (ER) | payer MEDICARE | END 2021-11-08 10:23 | disposition home or self-care (01) | LOC: ERS 08:05 | DX: S61.411D Laceration without foreign body of right hand, subsequent encounter (principal); L03.011 Cellulitis of right finger; I10 Essential (primary) hypertension; W25.XXXD Contact with sharp glass, subsequent encounter; Z87.19 Personal history of other diseases of the digestive system; Z79.84 Long term (current) use of oral hypoglycemic drugs; Z79.899 Other long term (current) drug therapy | CPT/HCPCS: 99283 ==

== ENCOUNTER 2023-10-24 08:38 | Outpatient (CLI) | payer MEDICARE | END 2023-10-24 08:39 | disposition home or self-care (01) | LOC: BICRAD 08:38 | PROVIDERS: ATTEND Internal Medicine | DX: M25.512 Pain in left shoulder (principal); M54.32 Sciatica, left side; M47.816 Spondylosis without myelopathy or radiculopathy, lumbar region; M19.012 Primary osteoarthritis, left shoulder | CPT/HCPCS: 72100 ==